=== PATIENT | female | born 1985 | race Caucasian/White ===

== ENCOUNTER 2018-04-29 16:27 | Observation (INO) | payer MEDICAID ==
[~2018-04-29] VITALS: Ht 167.6 cm; Wt 92.5 kg
[2018-04-29] MEDS ORDERED: FOLI-43 MT (17:48)
[2018-04-29] MEDS ORDERED: PREN1TAB78 MT (17:48)
[2018-04-29] MEDS ORDERED: FERR325T6 MT (17:49)
== END 2018-04-29 18:00 | disposition home or self-care (01) ==
LOC: L&D 16:27
PROVIDERS: ADMIT Obstetrics & Gynecology; ATTEND Obstetrics & Gynecology
DX: O76 Abnormality in fetal heart rate and rhythm complicating labor and delivery (principal); Z3A.37 37 weeks gestation of pregnancy
CPT/HCPCS: 59025; 76815; 76818; G0378

== ENCOUNTER 2018-05-01 08:39 | Observation (INO) | payer MEDICAID ==
[~2018-05-01] VITALS: Ht 162.6 cm; Wt 86.6 kg
[~2018-05-01 08:39] MED LIST: FERR325T6 MT; FOLI-43 MT; PREN1TAB78 MT
== END 2018-05-01 10:45 | disposition home or self-care (01) ==
LOC: L&D 08:39
PROVIDERS: ADMIT Obstetrics & Gynecology; ATTEND Obstetrics & Gynecology
DX: O21.2 Late vomiting of pregnancy (principal); Z3A.38 38 weeks gestation of pregnancy
CPT/HCPCS: 59025; 76815; 76818; G0378

== ENCOUNTER 2018-05-06 16:11 | Observation (INO) | payer MEDICAID | END 2018-05-06 18:30 | disposition home or self-care (01) | LOC: L&D 16:11 | PROVIDERS: ADMIT Obstetrics & Gynecology; ATTEND Obstetrics & Gynecology | DX: O26.893 Other specified pregnancy related conditions, third trimester (principal); Z3A.38 38 weeks gestation of pregnancy | CPT/HCPCS: 76805; 76818; 99281; G0378 ==

== ENCOUNTER 2018-05-11 09:32 | Observation (INO) | payer MEDICAID ==
[~2018-05-11] VITALS: Ht 162.6 cm; Wt 81.6 kg
== END 2018-05-11 12:50 | disposition home or self-care (01) ==
LOC: L&D 09:32
PROVIDERS: ADMIT Obstetrics & Gynecology; ATTEND Obstetrics & Gynecology
DX: Z34.93 Encounter for supervision of normal pregnancy, unspecified, third trimester (principal); Z3A.39 39 weeks gestation of pregnancy
CPT/HCPCS: 59025; 76815; 76818; G0378

== ENCOUNTER 2018-05-18 20:12 | Inpatient (IN) | payer MEDICAID ==
[~2018-05-18] VITALS: Ht 167.6 cm; Wt 88.5 kg
[~2018-05-18 20:12] MED LIST changes: -FERR325T6 MT
[2018-05-18] MEDS ORDERED: BUTORPHANOL TARTRATE 2 MG/ML VIAL IV PRN ×2 (21:30→22:00)
[2018-05-18] MEDS ORDERED: METHYLERGONOVINE MALEATE 0.2 MG/ML IM PRN (21:30)
[2018-05-18] MEDS ORDERED: CARBOPROST TROMETHAMINE 250 MCG/ML AMPUL IM PRN (21:30)
[2018-05-18] MEDS ORDERED: LIDOCAINE HCL 1% 20ML VIAL (Pyxis) INJ INFIL SCH (22:00)
[2018-05-18] MEDS ORDERED: NALOXONE HCL 0.4 MG/ML 1ML VIAL IM PRN (22:00)
[2018-05-18] MEDS ORDERED: MISOPROSTOL 100MCG TABLET VG SCH (22:00)
[2018-05-18 23:03] LABS: BASOPHILS % 0.8 % (0.0-2.0); EOSINOPHILS % 9.4 % (0.0-5.0); HEMATOCRIT. 35.3 % (36.0-48.0); HEMOGLOBIN. 11.9 g/dL (12.0-16.0); LYMPHOCYTES % 17.4 % (20.0-50.0); MEAN CORPUSCULAR HEMOGLOBIN 32.4 pg (28.0-32.0); MEAN CORPUSCULAR VOLUME 96.6 fL (81.0-99.0); MEAN PLATELET VOLUME 9.6 fl (7.4-10.4); MONOCYTES % 7.6 % (2.0-8.0); NEUTROPHILS % 64.8 % (40.0-76.0); PLATELET 281 x1000/uL (130-400); RED BLOOD CELL COUNT 3.66 mill/uL (4.2-5.4); RED CELL DISTRIBUTION WIDTH 12.8 % (11.6-14.6)
[2018-05-18 23:12] LABS: COLOR URINE YELLOW (YELLOW); KETONES URINE NEGATIVE (NEGATIVE); LEUKOCYTE ESTERASE URINE 1+ (NEGATIVE); NITRITE URINE NEGATIVE (NEGATIVE); OCCULT BLOOD URINE 1+ (NEGATIVE); PH URINE 6.5 (4.5-8.0); PROTEIN URINE NEGATIVE (NEGATIVE); SPECIFIC GRAVITY URINE 1.007 (1.005-1.030)
[2018-05-18 23:13] LABS: CLARITY URINE HAZY (CLEAR)
[2018-05-18 23:15] LABS: *AMPHETAMINES SCREEN URINE NEGATIVE (NEGATIVE); *BARBITURATES SCREEN URINE NEGATIVE (NEGATIVE)
[2018-05-18 23:16] LABS: *BENZODIAZEPINES SCREEN URINE NEGATIVE (NEGATIVE); *COCAINE SCREEN URINE NEGATIVE (NEGATIVE); CANNABINOID URINE SCREEN NEGATIVE (NEGATIVE); METHADONE URINE SCREEN NEGATIVE (NEGATIVE); OPIATES URINE SCREEN NEGATIVE (NEGATIVE); PHENCYCLIDINE URINE SCREEN NEGATIVE (NEGATIVE)
[2018-05-18 23:27] LABS: INR 0.9; PARTIAL THROMBOPLASTIN TIME 29.4 sec (23.4-31.0); PROTHROMBIN TIME 9.2 sec (9.4-11.6)
[2018-05-18 23:39] LABS: HEPATITIS B SURFACE ANTIGEN NEGATIVE; RUBELLA IGG 358.8 IU/mL (4.99-10)
[2018-05-18] MEDS ORDERED: MISOPROSTOL 25 MCG TABLET VG NR (23:45)
[2018-05-18] MEDS ORDERED: MISOPROSTOL 100MCG TABLET VG NR ×2 (23:45→23:50)
[2018-05-19] MEDS: DEXT 5%/LACTATED RINGERS 500 ML IV SCH ×2 (00:05→01:31)
[2018-05-19] MEDS: DEXT 5%/LR + PITOCIN 20UNITS/L 1,000 ML IV SCH ×2 (05:10→19:15)
[2018-05-19] MEDS ORDERED: DEXT 5%/LACTATED RINGERS 1,000 ML IV SCH (05:30)
[2018-05-19] MEDS ORDERED: BUPIVACAINE HCL/PF 0.25% (2.5MG/ML) 10ML ONE (07:49)
[2018-05-19] MEDS ORDERED: FENTANYL CITRATE/PF 50MCG/ML 2ML VIAL ONE (07:49)
[2018-05-19] MEDS ORDERED: BUPIVACAINE HCL/NS/PF EPIDURAL 100 ML EP ONE (07:49)
[2018-05-19] MEDS: LACTATED RINGERS 1,000 ML IV SCH ×2 (09:21→14:22)
[2018-05-19] MEDS ORDERED: DEXT 5%/LR + PITOCIN 20UNITS/L 1,000 ML IV SCH (17:58)
[2018-05-19] MEDS ORDERED: RHO(D) IMMUNE GLOBULIN 300 MCG/SYR IM PRN (18:00)
[2018-05-19] MEDS ORDERED: IBUPROFEN 400MG TABLET PO PRN (18:00)
[2018-05-19] MEDS ORDERED: ACETAMINOPHEN WITH CODEINE 300/30MG TABLET PO PRN (18:00)
[2018-05-19 20:30] VITALS: BP 108/62
[2018-05-19 21:00] VITALS: BP 121/62
[2018-05-19] MEDS: IBUPROFEN 800MG TABLET PO PRN (21:09)
[2018-05-19 21:31] VITALS: BP 122/68
[2018-05-20] VITALS: BP 120/67
[2018-05-20 08:00] VITALS: BP 110/63
[2018-05-20 08:30] LABS: BASOPHILS % 0.2 % (0.0-2.0); EOSINOPHILS % 8.1 % (0.0-5.0); HEMATOCRIT. 33.4 % (36.0-48.0); HEMOGLOBIN. 11.4 g/dL (12.0-16.0); LYMPHOCYTES % 10.3 % (20.0-50.0); MEAN CORPUSCULAR HEMOGLOBIN 32.7 pg (28.0-32.0); MEAN CORPUSCULAR VOLUME 96.1 fL (81.0-99.0); MEAN PLATELET VOLUME 8.7 fl (7.4-10.4); MONOCYTES % 6.3 % (2.0-8.0); NEUTROPHILS % 75.1 % (40.0-76.0); PLATELET 260 x1000/uL (130-400); RED BLOOD CELL COUNT 3.47 mill/uL (4.2-5.4); RED CELL DISTRIBUTION WIDTH 12.5 % (11.6-14.6)
[2018-05-20] MEDS: IBUPROFEN 800MG TABLET PO PRN (09:35)
[2018-05-20 15:33] VITALS: BP 101/52
[2018-05-20 22:00] VITALS: BP 105/50
[2018-05-21 05:03] VITALS: BP 108/56
[2018-05-21] MEDS: IBUPROFEN 800MG TABLET PO PRN (06:10)
[2018-05-21 07:50] VITALS: BP 98/50
== END 2018-05-21 12:20 | disposition home or self-care (01) | DRG 560 ==
LOC: OBSVTOIN 20:12 → L&D 20:12 → 7EST PP/OB 05-19 20:30
PROVIDERS: ADMIT Obstetrics & Gynecology; ATTEND Obstetrics & Gynecology
PROC: 3E0R3BZ Introduction of Anesthetic Agent into Spinal Canal, Percutaneous Approach (ICD-10-PCS; 2018-05-19)
PROC: 00HU33Z Insertion of Infusion Device into Spinal Canal, Percutaneous Approach (ICD-10-PCS; 2018-05-19)
PROC: 10E0XZZ Delivery of Products of Conception, External Approach (ICD-10-PCS; principal; 2018-05-19 17:14)
DX: O80 Encounter for full-term uncomplicated delivery (principal); Z37.0 Single live birth; Z79.899 Other long term (current) drug therapy; Z3A.40 40 weeks gestation of pregnancy
CPT/HCPCS: 36415; 80305; 81003; 85025; 85610; 85730; 86592; 86703; 86762; 86850; 86900; 87340; G0378; J2590; J3010; J3490; J7030; J7120; J7121; A4315